=== PATIENT | female | born 1960 | race Caucasian/White ===

== ENCOUNTER 2017-04-21 14:05 | Emergency (ER) | payer OTHER ==
[~2017-04-21] VITALS: Ht 180.3 cm; Wt 80.0 kg
[~2017-04-21 14:05] MED LIST: GABA100C4 PO; SYMB80AE INH
[2017-04-21 14:08] VITALS: BP 185/117; PULSE 112; RESP 24; TEMP 98.2; O2SAT 94
--- NOTE | 2017-04-21 14:22 | PD ---
HPI Chief Complaint: Neuro Symptoms/ Deficits Time Seen by Provider: 14:22 Travel History International Travel<30 days: No Contact w/Intl Traveler<30days: No Traveled to known affect area: No PFSH Past Medical History Respiratory: Yes (asthma) Allergies-Medications (Allergen,Severity, Reaction): Coded Allergies: No Known Allergies (Unverified , 02/09/17) Reported Meds & Prescriptions Reported Meds & Active Scripts Active Reported Gabapentin 100 Mg Cap 100 Mg PO BID Symbicort Inh (Budesonide/Formoterol Fumarate) 80-4.5 Mcg/Act Aero 2 Puff INH Q12HR Data Data Last Documented VS Vital Signs Date Time Temp Pulse Resp B/P Pulse Ox O2 Delivery O2 Flow Rate FiO2 04/21/17 14:08 98.2 112 24 185/117 94 Room Air Marsha Corrales Apr 21, 2017 14:22
[2017-04-21] MEDS ORDERED: MONT10TA2 PO (15:09)
--- NOTE | 2017-04-21 15:10 | PD ---
HPI Chief Complaint: Neuro Symptoms/ Deficits Time Seen by Provider: 14:22 Travel History International Travel<30 days: No Contact w/Intl Traveler<30days: No Traveled to known affect area: No History of Present Illness HPI 56-year-old female arrives because she feels as though the occipital scalp and swelling. She has followed up with multiple outpatient providers and has undergone CT and MR imaging of the cervical spine and head. As of yet no diagnosis has been offered. She reports swelling along the back of the head seems to get better with steroids. She iterates repeatedly that she has not had neck pain or headache. She states, "I'm not crazy. Something is wrong. 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 I feel like my head is going to pop off my cervical spine. I've never wanted pain medication." The symptoms have been present for at least 3 months. She had no traumatic injury precipitating the pain. She vomited evidently continuously for about 12 hours a day ago. In the 2 days preceding that she was quite sleepy and spent most of her time in bed. PFSH Past Medical History Respiratory: Yes (asthma) Tetanus Vaccination: > 5 Years Influenza Vaccination: No Social History Alcohol Use: No Tobacco Use: No Substance Use: No Allergies-Medications (Allergen,Severity, Reaction): Coded Allergies: No Known Allergies (Unverified , 04/21/17) Reported Meds & Prescriptions Reported Meds & Active Scripts Active Medrol Dosepak (Methylprednisolone) 4 Mg Dspk 4 Mg PO DIRECTED Per Pharmacist direction Ativan (Lorazepam) 0.5 Mg Tab 0.5 Mg PO Q8H PRN Reported Singulair (Montelukast Sodium) 10 Mg Tab 10 Mg PO HS Symbicort Inh (Budesonide/Formoterol Fumarate) 80-4.5 Mcg/Act Aero 2 Puff INH Q12HR Review of Systems Except as stated in HPI: all other systems reviewed are Neg Physical Exam Narrative GENERAL: 56-year-old female well-nourished well-developed mildly anxious SKIN: Focused skin assessment warm/dry. HEAD: Atraumatic. Normocephalic. EYES: Pupils equal and round. No scleral icterus. No injection or drainage. ENT: No nasal bleeding or discharge. Mucous membranes pink and moist. NECK: Trachea midline. No JVD. There is no focal tenderness along the cervical spine. CARDIOVASCULAR: Regular rate and rhythm. No murmur appreciated. RESPIRATORY: No accessory muscle use. Clear to auscultation. Breath sounds equal bilaterally. GASTROINTESTINAL: Abdomen soft, non-tender, nondistended. Hepatic and splenic margins not palpable. MUSCULOSKELETAL: No obvious deformities. No clubbing. No cyanosis. No edema. The contour of the occipital scalp feels normal. There is a normal occipital protuberance. Normal mastoid prominence disease present. There is no tenderness skin change or appreciable swelling involving the back of the patient 's head where she attests to have had swelling. NEUROLOGICAL: Awake and alert. No obvious cranial nerve deficits. Motor grossly within normal limits. Normal speech. PSYCHIATRIC: Appropriate mood and affect; insight and judgment normal. Data Data Last Documented VS Vital Signs Date Time Temp Pulse Resp B/P Pulse Ox O2 Delivery O2 Flow Rate FiO2 04/21/17 15:14 96 18 127/82 98 Room Air 04/21/17 14:08 98.2 Vital signs reviewed MDM Medical Decision Making Medical Screen Exam Complete: Yes Emergency Medical Condition: Yes Medical Record Reviewed: Yes Differential Diagnosis Swelling, edema, anxiety Narrative Course Approximately 30 minutes was spent in the room with the patient discussing her complaints and reading to her the results of her various diagnostic imaging studies. All efforts to reassure the patient were provided. Diagnosis Primary Impression: Swelling Referrals: Braydon Pastor PhD MD 2 days Additional Instructions: You have a choice when it comes to health care, and we are glad that you chose [facility]. Hopefully, we have met your expectations on today's visit. You are welcome to return to [facility] at any time, as we are committed to meeting the health care needs of our community. Med/Other Pt SpecificInfo: Prescription(s) given Scripts Methylprednisolone Dosepak (Medrol Dosepak)4 Mg Dspk4 Mg PO DIRECTED #1 DSPK Ref 0 Per Pharmacist direction Prov:Faraz Garcia MD 04/21/17 Lorazepam (Ativan)0.5 Mg Tab0.5 Mg PO Q8H PRN (ANXIETY AND/OR AGITATION) #20 TAB Ref 0 Prov:Faraz Garcia MD 04/21/17 Disposition: 01 DISCHARGE HOME Condition: Stable Faraz Garcia MD Apr 21, 2017 15:10
[2017-04-21] MEDS ORDERED: MEDR4PAK PO (15:11)
[2017-04-21] MEDS ORDERED: LORA-392 PO (15:11)
[2017-04-21 15:14] VITALS: BP 127/82; PULSE 96; RESP 18; O2SAT 98
== END 2017-04-21 15:45 | disposition home or self-care (01) ==
LOC: NEPC 14:05
DX: R60.9 Edema, unspecified (principal); R11.10 Vomiting, unspecified; Z87.09 Personal history of other diseases of the respiratory system
CPT/HCPCS: 99284